=== PATIENT | female | born 1970 | race Caucasian/White ===

== ENCOUNTER → 2017-04-26 | Outpatient (CLI) | payer OTHER ==
[~2017-04-26] MED LIST: COUMADIN PO; HCTZ PO; IBUPROFEN PO; NORVASC PO; ZANTAC PO
--- NOTE | ~2017-04-26 | US85 ---
[facility] A Service [facility] RADIOLOGY TEXT RESULTS PATIENT: POONAM RICHARD LOCATION: SNIV : 66 UNIT #: [id number] AGE: [address]: Philippe Coreas MD SEX: F ORDER DR: [id number] [place] [id number] O MR#: [id number] Acc #: [id number] NAME: POONAM RICHARD : 1970 SEX: F STUDY DATE/TIME: 04/26/2017 15:17 UNIT: SNIV ROOM: STUDY DESCRIPTION: [facility] Attending Physician: Philippe Coreas M.D. Referring Physician: Philippe Coreas M.D. Ordering Physician: Philippe Coreas M.D. Primary Care Physician: Philippe Coreas M.D. MEDICAL IMAGING REPORT This report is preliminary unless electronic signature is present. EXAM Unilateral left lower extremity venous Doppler, 04/26/17. CLINICAL HISTORY Left leg pain for 2 days. TECHNIQUE Venous ultrasound examination of the left lower extremity was performed using grayscale, spectral Doppler and color flow Doppler imaging. FINDINGS The examination is negative. There is no evidence of left lower extremity deep venous thrombus from the groin to the lower calf. Visualized greater saphenous vein is also patent. IMPRESSION Negative examination. No evidence of left lower extremity DVT. Dictated by... Lauri Shankar M.D. THIS IS AN ELECTRONICALLY VERIFIED REPORT Lauri Shankar M.D. at 04/27/2017 10:47 PM MARY/janell TD: 04/26/2017 18:36 JOB #: [id number] [facility] A Service [facility] RADIOLOGY TEXT RESULTS PATIENT: POONAM RICHARD LOCATION: SNIV : 66 UNIT #: [id number] AGE: [address]: Philippe Coreas MD SEX: F ORDER DR: MEDICAL IMAGING REPORT Page 1 of 1
== END | disposition home or self-care (01) ==
LOC: SNIV 15:00
DX: M79.89 Other specified soft tissue disorders (principal); M79.662 Pain in left lower leg
CPT/HCPCS: 93971